=== PATIENT | male | born 1935 | race Caucasian/White ===

== ENCOUNTER → 2017-02-19 | Outpatient (CLI) | payer OTHER, BC ==
[~2017-02-19] MED LIST: ASPEC81 PO; CRS10 PO; CYCL10TA6 PO; NAPR1TAB9 PO; PLV75 PO; TPRSR50 PO; TYL325X PO
--- NOTE | 2017-02-19 14:12 | DIAGNOSTIC IMAGING REPORT ---
LUMBAR SPINE MIN 4 VIEWS CLINICAL HISTORY: Low back pain. COMPARISON: Lumbar spine radiographs September 09, 2015. FINDINGS: Incidental note is made of cholecystectomy clips. There is slight rightward curvature of the lumbar spine. No acute fracture is identified. Moderate disc space narrowing is noted L5-S1. This extensive anterior osteophytosis. There is moderate to severe multilevel facet arthrosis. IMPRESSION: 1. No acute lumbar spine fracture. 2. 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 Electronically signed by: Johnson Alvarez M.D. 02/19/2017 2:11 PM Dictated Date/Time: 02/19/2017 2:09 PM
== END | disposition home or self-care (01) ==
LOC: C.RDSM 14:30
PROVIDERS: ATTEND Physician Assistant
DX: M54.5 Low back pain (principal); M51.36 Other intervertebral disc degeneration, lumbar region

== ENCOUNTER → 2017-07-31 | Outpatient (CLI) | payer OTHER, BC ==
--- NOTE | 2017-07-31 12:26 | DIAGNOSTIC IMAGING REPORT ---
Bilateral knees, 5 views CLINICAL HISTORY: Chronic bilateral knee pain COMPARISON: 05/03/2016 DISCUSSION: No acute fractures are visualized. There are postsurgical changes of a medial joint compartment arthroplasty involving the right knee. There are mild to moderate osteoarthritic changes involving the left knee most pronounced involving the medial joint compartment patellofemoral joint. There are bilateral dorsal patellar spurs. There are vascular calcifications present. IMPRESSION: 1. Mild to moderate bilateral osteoarthritic changes 2. Postsurgical changes of a right knee medial hemiarthroplasty 3. No acute fractures. Electronically signed by: Maximo Gunn M.D. 07/31/2017 12:24 PM Dictated Date/Time: 07/31/2017 12:22 PM
== END | disposition home or self-care (01) ==
LOC: C.RDSM 12:19
PROVIDERS: ATTEND Physician Assistant
DX: M17.12 Unilateral primary osteoarthritis, left knee (principal); M17.0 Bilateral primary osteoarthritis of knee